=== PATIENT | female | born 2000 | race Caucasian/White ===

== ENCOUNTER 2024-10-17 15:58 | Outpatient (CLI) | payer OTHER, SELFPAY ==
[2024-10-22 04:36] LABS: HPV Source Endocervical; HPV, High Risk by TMA Not Detected
== END 2024-10-17 15:59 | disposition home or self-care (01) ==
PROVIDERS: PCP Family Medicine; Visit Provider Family Medicine
DX: Z12.4 Encounter for screening for malignant neoplasm of cervix (principal); Z11.51 Encounter for screening for human papillomavirus (HPV)
CPT/HCPCS: 87624; 87625; 88141; 88142